=== PATIENT | male | born 1995 | race Caucasian/White ===

== ENCOUNTER → 2016-12-20 | Outpatient (CLI) | payer OTHER | END | disposition home or self-care (01) | LOC: CT 08:00 | DX: K66.8 Other specified disorders of peritoneum (principal); R10.33 Periumbilical pain; I25.10 Atherosclerotic heart disease of native coronary artery without angina pectoris ==

== ENCOUNTER 2022-05-22 20:43 | Emergency (ER) | payer BC ==
[~2022-05-22] VITALS: Ht 177.8 cm; Wt 90.7 kg
[2022-05-22] MEDS ORDERED: CRESTOR10 M1 PO (21:04)
[2022-05-22] MEDS ORDERED: ZANTAC-360 (FAM10 MG PO (21:04)
[2022-05-22 21:56] LABS: BILIRUBIN Negative (Negative); BLOOD 1+ (Negative); CLARITY Turbid (Clear); COLOR Yellow (Yellow); GLUCOSE Negative (Negative); KETONE Trace (Negative); LEUKO ESTERASE Negative (Negative); NITRITE Negative (Negative); SPECIFIC GRAVITY >= 1.030 (1.001-1.030)
[2022-05-22 22:07] LABS: BACTERIA 1+
[2022-05-22 22:09] LABS: BASO # 0.1 10*3/uL (0.0-0.1); BASO % 0.6 % (0.0-1.0); EOS # 0.1 10*3/uL (0.0-0.4); EOS % 0.5 % (1.0-4.0); HEMATOCRIT 42.7 % (42.0-52.0); LYMPH # 1.6 10*3/uL (1.3-4.4); MEAN CELL VOLUME 89.1 fl (80.0-94.0); MEAN CORPUSCULAR HGB 30.1 pg (27.0-31.0); MEAN CORPUSCULAR HGB CONC 33.7 g/dl (33.0-37.0); MEAN PLATELET VOLUME 9.3 fl (9.6-12.3); MONO # 0.7 10*3/uL (0.1-1.0); MONO % 5.1 % (3.0-9.0); NEUT # 11.8 10*3/uL (2.3-7.9); PLATELET COUNT AUTOMATED 294 10*3/uL (130-400); RED BLOOD COUNT 4.79 10*6/uL (4.50-5.90); RED CELL DISTRI WIDTH 12.2 % (0-14.5); WHITE BLOOD COUNT 14.4 10*3/uL (4.8-10.8)
[2022-05-22 22:24] LABS: ALKALINE PHOSPHATASE 53 U/L (45-117); BUN 14 mg/dl (7-24); CHLORIDE 109 mmol/L (98-107); CREATININE 1.23 mg/dL (0.70-1.30); POTASSIUM 3.7 mmol/L (3.5-5.1); SGOT/AST 21 IU/L (3-35); SGPT/ALT 29 U/L (12-78); SODIUM 143 mmol/L (136-145); TOTAL PROTEIN 7.3 gm/dL (6.4-8.2)
[2022-05-23] MEDS ORDERED: Percocet 325 MG1 TAB PO (00:18)
== END 2022-05-23 00:45 | disposition home or self-care (01) ==
LOC: ED 20:43
PROVIDERS: Emergency Medicine
DX: N13.2 Hydronephrosis with renal and ureteral calculous obstruction (principal); Z88.6 Allergy status to analgesic agent; Z91.040 Latex allergy status; Z79.899 Other long term (current) drug therapy

== ENCOUNTER 2024-02-02 15:11 | Emergency (ER) | payer BC ==
[~2024-02-02] VITALS: Ht 177.8 cm; Wt 94.3 kg
[~2024-02-02 15:11] MED LIST: CRESTOR10 M1 PO; Percocet 325 MG1 TAB PO; ZANTAC-360 (FAM10 MG PO
[2024-02-02] MEDS ORDERED: Ondansetron Hydrochloride 4 MG/2 ML VIAL IV ONE (15:25)
[2024-02-02] MEDS ORDERED: HYDROmorphONE Hydrochloride 0.5 MG/0.5 ML SYRINGE IV ONE (15:25)
[2024-02-02] MEDS ORDERED: SODIUM CHLORIDE 0.9% 1,000 ML IV ONE (15:30)
[2024-02-02] MEDS ORDERED: Ketorolac Tromethamine 30 MG/ML VIAL IV ONE (15:30)
[2024-02-02 15:56] LABS: BILIRUBIN Negative (Negative); BLOOD Negative (Negative); CLARITY Clear (Clear); COLOR Yellow (Yellow); GLUCOSE Negative (Negative); KETONE Negative (Negative); LEUKO ESTERASE Negative (Negative); NITRITE Negative (Negative); PH 5.5 (4.5-8.0); UROBILINOGEN 0.2 E.U./dl (0.0-1.0)
[2024-02-02 15:57] LABS: BASO # 0.1 10*3/uL (0.0-0.1); BASO % 0.9 % (0.0-1.0); EOS # 0.3 10*3/uL (0.0-0.4); EOS % 3.4 % (1.0-4.0); HEMATOCRIT 44.1 % (42.0-52.0); LYMPH # 2.5 10*3/uL (1.3-4.4); LYMPH % 28.5 % (27.0-41.0); MEAN CELL VOLUME 90.2 fl (80.0-94.0); MEAN CORPUSCULAR HGB 30.7 pg (27.0-31.0); MEAN PLATELET VOLUME 9.3 fl (9.6-12.3); MONO # 0.6 10*3/uL (0.1-1.0); NEUT # 5.3 10*3/uL (2.3-7.9); NEUT % 59.2 % (47.0-73.0); PLATELET COUNT AUTOMATED 294 10*3/uL (130-400); RED BLOOD COUNT 4.89 10*6/uL (4.50-5.90); RED CELL DISTRI WIDTH 12.1 % (0-14.5); WHITE BLOOD COUNT 8.9 10*3/uL (4.8-10.8)
[2024-02-02 16:10] LABS: BACTERIA TRACE; EPITHELIAL CELLS 0-2; MUCOUS 1+; RBC 0-2 rbc/hpf (0-2)
[2024-02-02 16:13] LABS: BUN 11 mg/dl (9-23); CHLORIDE 103 mmol/L (98-107); POTASSIUM 3.5 mmol/L (3.4-5.1)
[2024-02-02] MEDS ORDERED: FLOMAX0.4 MG PO ×2 (18:20→18:21)
[2024-02-02] MEDS ORDERED: HYDROCODONE-AC1 EAC1 PO (18:20)
[2024-02-02] MEDS ORDERED: Motrin,Rufen800 MG PO (18:21)
[2024-02-02] MEDS ORDERED: Acetaminophen/Hydrocodone 5 MG/325 MG TABLET PO ONE (18:25)
[2024-02-02] MEDS ORDERED: Tamsulosin Hydrochloride 0.4 MG CAP PO ONE (18:25)
== END 2024-02-02 18:28 | disposition home or self-care (01) ==
LOC: ED 15:11
PROVIDERS: Nurse Practitioner Family
DX: N20.0 Calculus of kidney (principal); R11.0 Nausea; Z88.6 Allergy status to analgesic agent

== ENCOUNTER 2024-10-18 17:14 | Emergency (ER) | payer BC ==
[~2024-10-18] VITALS: Ht 177.8 cm; Wt 90.7 kg
[~2024-10-18 17:14] MED LIST changes: +FLOMAX0.4 MG PO; +HYDROCODONE-AC1 EAC1 PO; +Motrin,Rufen800 MG PO
[2024-10-18] MEDS ORDERED: Acetaminophen/Hydrocodone 5 MG/325 MG TABLET PO ONE ×2 (17:45→19:25)
[2024-10-18] MEDS ORDERED: Bacitracin Zinc 14 GM TUBE T ONE (17:45)
[2024-10-18] MEDS ORDERED: Lidocaine Hydrochloride 2% 10 ML AMP SC ONE (17:45)
[2024-10-18] MEDS ORDERED: HYDROCODONE-AC1 EAC1 PO (19:20)
[2024-10-18] MEDS ORDERED: SEPTDS PO (19:20)
[2024-10-18] MEDS ORDERED: CEPHALEXIN500 M1 PO (19:20)
[2024-10-18] MEDS ORDERED: Sulfamethoxazole/Trimethopri 1 TAB TAB PO ONE (19:25)
[2024-10-18] MEDS ORDERED: CEPHALEXIN 500 MG CAP PO ONE (19:25)
== END 2024-10-18 19:27 | disposition home or self-care (01) ==
LOC: ED 17:14
DX: S61.211A Laceration without foreign body of left index finger without damage to nail, initial encounter (principal); Z87.442 Personal history of urinary calculi; W27.0XXA Contact with workbench tool, initial encounter; Y93.89 Activity, other specified; Y92.89 Other specified places as the place of occurrence of the external cause; Y99.8 Other external cause status